=== PATIENT | female | born 1930 | race Caucasian/White ===

== ENCOUNTER 2016-08-04 20:32 | Observation (INO) | payer OTHER, BC ==
--- NOTE | 2016-08-04 20:37 | PDOC ---
History of Present Illness - General History Source: Patient Exam Limitations: No Limitations - History of Present Illness Initial Comments: 08/04/16 21:08 The patient is a 86 year old female, with a significant past medical history of hypertension, hyperlipidemia, and hypothyroidism, who presents to the emergency department complaining of abdominal pain since earlier today. The patient reports her discomfort is localized epigastrically and is nonradiating. She reports associated nausea and diaphoresis. Patient reports taking Mylanta with minimal relief. She reports episodes of diarrhea yesterday. The patient reports she recently had a runny nose, fever, cough, and chills, during which she saw her PCP Dr. Polanco, who prescribed a Z-pack. Patient reports some SOB, but denies any chest pain, diaphoresis, or palpitations. The patient denies any dysuria, hematuria, frequency, or urgency. She denies any recent travel or sick contacts. PAST MEDICAL HISTORY: Hypertension, hyperlipidemia, and hypothyroidism PAST SURGICAL HISTORY: Appendectomy FAMILY HISTORY: Heart disease: father SOCIAL HISTORY: Pt lives with . Former smoker. Social ETOH use. No recreational drug use. MEDICATIONS: reviewed ALLERGIES: As per nursing notes PCP: Dr. Polanco General: Yes: +fever, +chills. No weakness, no weight loss HEENT: Yes: +runny nose. No change in vision. No sore throat. No ear pain CardioVascular: Yes: +shortness of breath.No chest pain. Respiratory: Yes: +cough. No wheezing. Gastrointestinal: Yes:+ abdominal pain, +nausea, +diarrhea. no vomiting or constipation. No rectal bleeding Genitourinary: No dysuria, hematuria, or frequency Musculoskeletal: No joint or muscle pain or swelling Neurologic: No headache, vertigo, dizziness or loss of consciousness Psychiatric: No depression Skin: No rashes or easy bruising Endocrine: no increased thirst or abnormal weight change Allergic: no skin or latex allergy All other systems reviewed and normal General: Well-nourished well-developed individual, no acute distress HEENT: Throat: Normal, tonsils normal, no erythema or exudate Neck: Supple, no meningeal signs, no lymphadenopathy Eyes::Pupils equal reactive and round, extraocular motion intact Chest: Nontender to palpation Cardiac: S1-S2 normal, regular rate and rhythm, no murmurs rubs or gallops Respiratory: Lungs clear to auscultation bilateral Abdomen: Mild tenderness epigastrically, but no guarding or rebound.. Soft, nondistended, normal bowel sounds Extremities: Warm, dry, no cyanosis, clubbing, or edema Skin: No rashes Neuro: Alert and oriented x3, nonfocal exam, grossly intact, normal gait Psych: Normal mood and affect <George Diggs - Last Filed: 08/04/16 21:28> - General History Source: Patient Exam Limitations: No Limitations - History of Present Illness Initial Comments: 08/04/16 22:11 A portion of this note was documented by scribe services under my direction. I have reviewed the details of the note, within reason, and agree with the documentation. The case summary and management plan written by me. 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 Otherwise no acute ST-T wave changes Chest x-ray reviewed by me no acute pathology Assessment and plan: This is an 86-year-old female who comes in complaining of epigastric pain times this afternoon. Patient said pain was associated with some nausea and diaphoresis and some mild shortness of breath. Patient has history of hypertension high cholesterol and hypothyroid. Patient's heart score is 5. Her initial troponin was negative. Patient will be placed in observation to a telemetry bed for rule out acute coronary syndrome. Patient will be a admitted under the hospitalist service <Sterling Dhaliwal I - Last Filed: 08/04/16 22:15> - General Chief Complaint: Pain, Acute Stated Complaint: EPIGASTRIC PAIN/HTN Time Seen by Provider: 08/04/16 20:37 Past History <George Diggs - Last Filed: 08/04/16 21:28> - Past Medical History HTN: Yes Hypercholesterolemia: Yes Thyroid Disease: Yes (HYPOTHYROID) - Surgical History Appendectomy: Yes - Family Disease History Family Disease History: Heart Disease: Father - Psycho/Social/Smoking Cessation Hx Anxiety: No Suicidal Ideation: No Smoking Status: No Smoking History: Former smoker Have you smoked in the past 12 months: No Number of Cigarettes Smoked Daily: 20 If you are a former smoker, when did you quit?: 25 Hx Alcohol Use: Yes Drug/Substance Use Hx: No Substance Use Type: None Hx Substance Use Treatment: No <Sterling Dhaliwal I - Last Filed: 08/04/16 22:15> - Past Medical History Allergies/Adverse Reactions: Allergies Allergy/AdvReac Type Severity Reaction Status Date / Time No Known Allergies Allergy Verified 08/03/15 17:35 Home Medications: Ambulatory Orders Aspirin [Aspir 81] 81 mg PO AM 05/31/12 Acetaminophen [Tylenol] 650 mg PO PRN PRN 08/04/16 Diazepam [Valium] 5 mg PO PRN PRN 08/04/16 Olmesartan Medoxomil [Benicar (Nf)] 40 mg PO DAILY 08/04/16 *Physical Exam - Vital Signs Last Vital Signs Temp Pulse Resp BP Pulse Ox 98.8 F 90 18 126/88 93 L 08/04/16 20:39 08/04/16 20:39 08/04/16 20:39 08/04/16 20:39 08/04/16 20:39 <George Diggs - Last Filed: 08/04/16 21:28> Heart Score/ECG Review - History History: Moderately suspicious - Electrocardiogram EKG: Non specific repolarization disturbance - Age Age: >/= 65 - Risk Factors Risk Factors Heart Score: Yes Hx Hypercholesterolemia, Yes Hx Hypertension Based on the list above the patient has:: 1-2 risk factors - Troponin Troponin: </= normal limit - Score Heart Score - Total: 5 <Sterling Dhaliwal I - Last Filed: 08/04/16 22:15> ED Treatment Course - LABORATORY CBC & Chemistry Diagram: 08/04/16 21:04 08/04/16 21:04 <George Diggs - Last Filed: 08/04/16 21:28> - LABORATORY CBC & Chemistry Diagram: 08/04/16 21:04 08/04/16 21:04 <Sterling Dhaliwal I - Last Filed: 08/04/16 22:15> *DC/Admit/Observation/Transfer - Attestations Scribe Attestion: 08/04/16 21:09 Documentation prepared by George Diggs, acting as medical screener for Sterling Dhaliwal MD. <George Diggs - Last Filed: 08/04/16 21:28> - Discharge Dispostion Admit: Yes <Sterling Dhaliwal I - Last Filed: 08/04/16 22:15> Diagnosis at time of Disposition: Epigastric pain - Discharge Dispostion Disposition: HOME Condition at time of disposition: Stable - Referrals Referrals: Robin Polanco MD [Primary Care Provider] -
[2016-08-04 21:13] LABS: MCH 34.4 pg (25.7-33.7); MCHC 34.7 g/dl (32.0-36.0); MEAN CELL VOLUME 99.4 fl (80-96); MEAN PLT VOLUME 6.6 fl (7.5-11.1); PLATELET COUNT 304 K/MM3 (134-434); RDW 12.1 % (11.6-15.6)
[2016-08-04] MEDS ORDERED: FAMOTIDINE 20 MG/50 ML IVPB 50 ML IVPB ONE ×2 (21:16→21:34)
[2016-08-04 21:27] LABS: CPK(DFH) 48 IU/L (26-140)
[2016-08-04 21:31] LABS: ALBUMIN 4.3 g/dl (3.5-5.0); ALK PHOS 51 U/L (32-92); ANION GAP 6 (8-16); BILIRUBIN,TOTAL 0.3 mg/dl (0.2-1.0); CALCIUM 9.1 mg/dl (8.4-10.2); CO2 27 mmol/L (22-28); CREATININE 0.7 mg/dl (0.6-1.3); GLUCOSE,RANDOM 102 mg/dl (74-106); SGOT/AST 22 U/L (10-42); SGPT/ALT 19 U/L (10-40); TOT PROT 7.1 g/dl (6.4-8.3)
[2016-08-04 21:57] LABS: TROPONIN I (DFP) < 0.03 ng/ml (0.03-0.50)
--- NOTE | 2016-08-04 22:42 | HP ---
CHIEF COMPLAINT: Epigastric Pain, SOB PCP: Dr Polanco HISTORY OF PRESENT ILLNESS: This is a 86 y/o female with a past medical history of Hypertension, Hyperlipidemia, Hypothyroidism. Who presents to the emergency department with epigastric pain, SOB x today. Patient reports having diarrhea x 1 day, now having loose BMs. Patient reports having low grade fever 99.0, dry-productive cough clear, rhinorrhea started Z-marbella by PMD. Patient denies chills, dizziness, CP, AP, N/V, constipation, dysuria. Patient denies exposure to sick contacts. ER course was notable for: (1) Cardiac Enzymes neg x1 (2) EKG NSR with LAD, old anterior infarct (3) Chest Xray- no acute pathology Recent Travel: None PAST MEDICAL HISTORY: See HPI PAST SURGICAL HISTORY: Appendectomy Social History: Smoking: Former Alcohol: Occasional Drugs: None Lives with spouse, independent Family History: Father- Heart Disease Allergies No Known Allergies Allergy (Verified 08/03/15 17:35) HOME MEDICATIONS: Home Medications Medication Instructions Recorded Aspirin [Aspir 81] 81 mg PO AM 05/31/12 Acetaminophen [Tylenol] 650 mg PO PRN PRN 08/04/16 Diazepam [Valium] 5 mg PO PRN PRN 08/04/16 Olmesartan Medoxomil [Benicar (Nf)] 40 mg PO DAILY 08/04/16 REVIEW OF SYSTEMS CONSTITUTIONAL: fever, loss of appetite Absent: chills, diaphoresis, generalized weakness, malaise, weight change HEENT: rhinorrhea Absent: nasal congestion, throat pain, throat swelling, difficulty swallowing, mouth swelling, ear pain, eye pain, visual changes CARDIOVASCULAR: Absent: chest pain, syncope, palpitations, irregular heart rate, lightheadedness , peripheral edema RESPIRATORY: cough Absent: shortness of breath, dyspnea with exertion, orthopnea, wheezing, stridor, hemoptysis GASTROINTESTINAL: diarrhea Absent: abdominal pain, abdominal distension, nausea, vomiting, constipation, melena, hematochezia GENITOURINARY: Absent: dysuria, frequency, urgency, hesitancy, hematuria, flank pain, genital pain MUSCULOSKELETAL: Absent: myalgia, arthralgia, joint swelling, back pain, neck pain SKIN: Absent: rash, itching, pallor HEMATOLOGIC/IMMUNOLOGIC: Absent: easy bleeding, easy bruising, lymphadenopathy, frequent infections ENDOCRINE: Absent: unexplained weight gain, unexplained weight loss, heat intolerance, cold intolerance NEUROLOGIC: Absent: headache, focal weakness or paresthesias, dizziness, unsteady gait, seizure, mental status changes, bladder or bowel incontinence PSYCHIATRIC: Absent: anxiety, depression, suicidal or homicidal ideation, hallucinations. PHYSICAL EXAMINATION Vital Signs - 24 hr 08/04/16 20:39 Temperature 98.8 F Pulse Rate 90 Respiratory 18 Rate Blood Pressure 126/88 O2 Sat by Pulse 93 L Oximetry (%) GENERAL: Awake, alert, and fully oriented, in no acute distress. HEAD: Normal with no signs of trauma. EYES: Pupils equal, round and reactive to light, extraocular movements intact, sclera anicteric, conjunctiva clear. No lid lag. EARS, NOSE, THROAT: Ears normal, nares patent, oropharynx clear without exudates. Dry mucous membranes. NECK: Normal range of motion, supple without lymphadenopathy, JVD, or masses. LUNGS: Air movement noted, diminished to Left base. No wheezes, and no crackles. No accessory muscle use. HEART: Regular rate and rhythm, normal S1 and S2 without murmur, rub or gallop. ABDOMEN: Obese,tender to epigastrium, soft, not distended, normoactive bowel sounds, no guarding, no rebound, no masses. No hepatomegaly or splenomegaly. MUSCULOSKELETAL: Normal range of motion at all joints. No bony deformities or tenderness. No CVA tenderness. UPPER EXTREMITIES: 2+ pulses, warm, well-perfused. No cyanosis. No clubbing. No peripheral edema. LOWER EXTREMITIES: 2+ pulses, warm, well-perfused. No calf tenderness. No peripheral edema. NEUROLOGICAL: Cranial nerves II-XII intact. Normal speech. Gait not observed. PSYCHIATRIC: Cooperative. Good eye contact. Appropriate mood and affect. SKIN: Warm, dry, normal turgor, no rashes or lesions noted, normal capillary refill. Laboratory Results - last 24 hr 08/04/16 08/04/16 08/04/16 21:04 21:04 21:04 WBC 3.0 L D RBC 3.74 Hgb 12.9 Hct 37.2 MCV 99.4 H MCHC 34.7 RDW 12.1 Plt Count 304 MPV 6.6 L Neutrophils % Y Lymphocytes % Y Sodium 132 L Potassium 4.3 Chloride 99 Carbon Dioxide 27 Anion Gap 6 L BUN 10 D Creatinine 0.7 Creat Clearance w eGFR > 60 Random Glucose 102 Calcium 9.1 Total Bilirubin 0.3 AST 22 D ALT 19 Alkaline Phosphatase 51 Creatine Kinase 48 Troponin I < 0.03 L Total Protein 7.1 Albumin 4.3 Lipase 27 ASSESSMENT/PLAN: This is a 86 y/o female with a PMHx of: HTN, HLD, Hypothyroidism. Placed in Telemetry Observation Epigastric Pain r/o ACS for further evaluation of their emergent condition. Plan: 1. Epigastric Pain - r/o ACS vs Gastritis vs GERD, vs Pancreatitis - HEART Score 5 - EKG- reviewed - Appreciate Cardiology Consult - Serial Enzymes neg x1 - Will trend CE x2 - Echo in am - Blood Cultures-pending - Famotidine given in ED with some relief - Continue Famotidine IV - Gentle IVF - Clear Liquids ad amrit - Repeat CBC, BMP in am - Stool Culture 2. Hypertension - Controlled - Monitor BP - Continue Zetia, Benicar - Monitor renal function 3. Hypothroidism - Continue Levothyroxine - TSH 4. Hyperlipidemia - Lipid panel in am - Continue Lipitor 5. FEN - D51/2 NS@42cc/hr - Replete lytes prn - Clear Na Liquid Diet 6. DVT Prophylaxis - OOB - SCDs - Consider ACs if LOS > 48 hrs Code Status: Full Code Problem List - Problem (1) Epigastric pain Code(s): R10.13 - EPIGASTRIC PAIN (2) Gastroenteritis Code(s): K52.9 - NONINFECTIVE GASTROENTERITIS AND COLITIS, UNSPECIFIED (3) HTN (hypertension) Code(s): I10 - ESSENTIAL (PRIMARY) HYPERTENSION (4) HLD (hyperlipidemia) Code(s): E78.5 - HYPERLIPIDEMIA, UNSPECIFIED (5) Hypothyroidism Code(s): E03.9 - HYPOTHYROIDISM, UNSPECIFIED (6) DVT prophylaxis Code(s): DLM4755 - Visit type - Emergency Visit Emergency Visit: Yes ED Registration Date: 08/04/16 Care time: The patient presented to the Emergency Department on the above date and was hospitalized for further evaluation of their emergent condition. - New Patient This patient is new to me today: Yes Date on this admission: 08/04/16 - Critical Care Critical Care patient: No
[2016-08-04 22:47] LABS: PLATELET ESTIMATE ADEQUATE (NORMAL)
[2016-08-04] MEDS ORDERED: ASPIRIN 81 MG CHEWABLE TABLETS PO ONE (22:51)
[2016-08-04] MEDS ORDERED: DEXTROSE 5%-0.45% SALINE 1,000 ML IV SCH (23:00)
[2016-08-04] MEDS ORDERED: ASPIRIN 81 MG CHEWABLE TABLETS ONE (23:06)
[2016-08-05 00:26] LABS: URINE APPEARANCE CLEAR; URINE BILIRUBIN NEGATIVE (NEGATIVE); URINE BLOOD NEGATIVE (NEGATIVE); URINE COLOR LTYELLOW; URINE GLUCOSE (UA) NEGATIVE (NEGATIVE); URINE KETONE NEGATIVE (NEGATIVE); URINE LEUK ESTERASE NEGATIVE (NEGATIVE); URINE NITRITE NEGATIVE (NEGATIVE); URINE PROTEIN NEGATIVE (NEGATIVE); URINE UROBILINOGEN NEGATIVE E.U./dl (0.2-1.0)
[2016-08-05 00:48] VITALS: BMI 30.6
[2016-08-05 02:33] LABS: TROPONIN I < 0.02 ng/ml (0.00-0.05)
[2016-08-05] MEDS: guaiFENesin 200 MG/10 ML 10 ML UNIT-DOSE CUPS PO PRN ×2 (04:36→23:20)
[2016-08-05] MEDS: ACETAMINOPHEN 325 MG TABLET (FP) PO PRN (06:02)
[2016-08-05] MEDS: LEVOTHYROXINE NA 25 MCG TABLET (FP) PO SCH (06:35)
[2016-08-05 07:32] LABS: BASOPHIL 0.4 % (0-2.0); EOSINOPHIL 4.4 % (0-4.5); MCH 34.6 pg (25.7-33.7); MCHC 34.5 g/dl (32.0-36.0); MEAN CELL VOLUME 100.1 fl (80-96); NEUTROPHILS 56.4 % (42.8-82.8); PLATELET COUNT 264 K/MM3 (134-434); RDW 11.9 % (11.6-15.6); WHITE BLOOD COUNT 3.6 K/mm3 (4.0-10.8)
[2016-08-05 07:41] LABS: ANION GAP 9 (8-16); CO2 26 mmol/L (22-28); CREATININE 0.7 mg/dl (0.6-1.3); GLUCOSE,RANDOM 96 mg/dl (74-106); MAGNESIUM 1.9 mg/dL (1.8-2.4); PHOSPHOROUS 3.2 mg/dl (2.5-4.6)
[2016-08-05 08:35] LABS: CPK(DFH) 56 IU/L (26-140)
[2016-08-05] MEDS ORDERED: PT OWN MED DRAWER 7, Y5N ONE (09:24)
[2016-08-05] MEDS: FOLIC ACID 1 MG TABLET (FP) PO SCH (09:26)
[2016-08-05] MEDS: EZETIMIBE 10 MG TABLET (FP) PO SCH (09:26)
[2016-08-05] MEDS: MULTIVITAMINS (DAILY MVI) TABLET (FP) PO SCH (09:26)
[2016-08-05] MEDS: VALSARTAN 160 MG TABLET (UD) PO SCH (09:26)
[2016-08-05] MEDS: ASPIRIN 81 MG CHEWABLE TABLETS PO SCH (09:26)
[2016-08-05 09:27] LABS: TROPONIN I (DFP) < 0.03 ng/ml (0.03-0.50)
--- NOTE | 2016-08-05 09:52 | PN ---
Progress Note (short form) - Note Progress Note: Subjective: The patient was seen and examined at the bedside. She reports having diarrhea x1 day on Sunday and then it quickly resolved. She has not had any diarrhea since Sunday. Will discontinued stool culture. The patient also reports a cough started about 10 days ago. She started a z-marbella on without relief of symptoms. She denies any fever or chills. Chest x- ray negative for acute process. She also reports epigastric pain that has now resolved. She reports relief while taking Mylanta. Current Medications Generic Name Dose Route Start Last Admin Trade Name Freq PRN Reason Stop Dose Admin Acetaminophen 650 mg 08/05/16 02:16 08/05/16 06:02 Tylenol - PO 650 mg Q6H PRN Administration FEVER OR PAIN Al Hydroxide/Mg Hydroxide 30 ml 08/05/16 09:53 Mylanta Oral Suspension - PO Q6H PRN DYSPEPSIA Aspirin 81 mg 08/05/16 10:00 08/05/16 09:26 Asa - PO 81 mg DAILY RAMYA Administration Atorvastatin Calcium 10 mg 08/07/16 22:00 Lipitor - PO MoFr@2200 RAMYA Ezetimibe 10 mg 08/05/16 10:00 08/05/16 09:26 Zetia - PO 10 mg DAILY RAMYA Administration Famotidine 20 mg 08/05/16 10:00 Pepcid - PO BID RAMYA Folic Acid 1 mg 08/05/16 10:00 08/05/16 09:26 Folic Acid - PO 1 mg DAILY RAMYA Administration Guaifenesin 10 ml 08/05/16 01:48 08/05/16 04:36 Robitussin - PO 10 ml Q6H PRN Administration COUGH Guaifenesin/Codeine Phosphate 5 ml 08/05/16 09:48 Robitussin Ac - PO 08/05/16 09:49 ONCE ONE Dextrose/Sodium Chloride 1,000 mls @ 42 mls/hr 08/04/16 23:00 08/05/16 00:25 D5-1/2ns - IV 42 mls/hr ASDIR RAMYA Administration Levothyroxine Sodium 25 mcg 08/05/16 07:00 08/05/16 06:35 Synthroid - PO 25 mcg DAILY@0700 RAMYA Administration Multivitamins/Minerals/Vitamin C 1 tab 08/05/16 10:00 08/05/16 09:26 Tab-A-Vit - PO 1 tab DAILY RAMYA Administration Valsartan 320 mg 08/05/16 10:00 08/05/16 09:26 Diovan - PO 320 mg DAILY RAMYA Administration Objective: Vital Signs Period Temp Pulse Resp BP Sys/Haley Pulse Ox Last 24 Hr 98.6 F-99 F 62-90 18-19 112-141/64-94 93-100 Physical Exam: General: NAD, A&Ox3 Lungs: CTA bilaterally, dry cough Heart: RRR, S1S2 Abd: Soft, non-tender, non-distended. Normoactive bowel sounds Ext: Warm, well-perfused. 2+ DP/PT bilaterally Neuro: CN 2-12 intact CBCD WBC 3.6 K/mm3 (4.0-10.8) L 08/05/16 06:00 RBC 3.46 M/mm3 (3.60-5.2) L 08/05/16 06:00 Hgb 12.0 GM/dl (10.7-15.3) 08/05/16 06:00 Hct 34.6 % (32.4-45.2) 08/05/16 06:00 MCV 100.1 fl (80-96) H 08/05/16 06:00 MCHC 34.5 g/dl (32.0-36.0) 08/05/16 06:00 RDW 11.9 % (11.6-15.6) 08/05/16 06:00 Plt Count 264 K/MM3 (134-434) 08/05/16 06:00 MPV 7.0 fl (7.5-11.1) L 08/05/16 06:00 CMP Sodium 134 mmol/L (136-145) L 08/05/16 06:00 Potassium 4.4 mmol/L (3.5-5.1) 08/05/16 06:00 Chloride 99 mmol/L (98-107) 08/05/16 06:00 Carbon Dioxide 26 mmol/L (22-28) 08/05/16 06:00 Anion Gap 9 (8-16) 08/05/16 06:00 BUN 10 mg/dl (7-18) 08/05/16 06:00 Creatinine 0.7 mg/dl (0.6-1.3) 08/05/16 06:00 Creat Clearance w eGFR > 60 (>60) 08/04/16 21:04 Random Glucose 96 mg/dl (74-106) 08/05/16 06:00 Calcium 9.0 mg/dl (8.4-10.2) 08/05/16 06:00 Total Bilirubin 0.3 mg/dl (0.2-1.0) 08/04/16 21:04 AST 22 U/L (10-42) D 08/04/16 21:04 ALT 19 U/L (10-40) 08/04/16 21:04 Alkaline Phosphatase 51 U/L (32-92) 08/04/16 21:04 Total Protein 7.1 g/dl (6.4-8.3) 08/04/16 21:04 Albumin 4.3 g/dl (3.5-5.0) 08/04/16 21:04 CARDIAC ENZYMES Creatine Kinase 56 IU/L (26-140) 08/05/16 07:57 Troponin I < 0.03 ng/ml (0.03-0.50) L 08/05/16 07:57 Assessment: This is an 86 year old female with PMHx of hypertension, hyperlipidemia, and hypothyroidism who presented to the ED with epigastric pain and cough. Plan: 1) Non-productive cough - Viral vs. bacterial - Afebrile, no leukocytosis noted - Chest x-ray without any acute process - Will hold off on starting antibiotics at this time - Robitussin with codeine x1 and assess for relief of symptoms 2) Epigastric pain - GI vs. cardiac - Trop x2 negative, f/u 3rd trop. ECHO ordered. F/u cardiology consult - Pain has since resolved - Patient reports relief with Mylanta - Continue Mylanta - Continue Famotidine - Sodium controlled diet 3) HTN - Continue Diovan 4) Hyperlipidemia - Continue Zetia - Continue Lipitor 5) Hypothyroidism - Continue Synthroid - F/u TSH 6) F/E/N: - Sodium controlled diet - D/c IV fluids, patient tolerating po fluids 7) Prophylaxis: - SCDs bilaterally - Heparin 5,000u sq bid 8) Dispo: - Once condition improves and awaiting ECHO CODE STATUS: FULL CODE Visit type - Emergency Visit Emergency Visit: Yes ED Registration Date: 08/04/16 Care time: The patient presented to the Emergency Department on the above date and was hospitalized for further evaluation of their emergent condition. - New Patient This patient is new to me today: Yes Date on this admission: 08/05/16 - Critical Care Critical Care patient: No
[2016-08-05] MEDS ORDERED: MAG HYDROX/AL HYDROX/SIMETH 30 ML UNIT-DOSE CUP PO PRN (09:53)
[2016-08-05] MEDS: FAMOTIDINE 20 MG TABLET PO SCH ×2 (09:59→22:10)
[2016-08-05] MEDS ORDERED: guaiFENesin/CODEINE 10 ML UNIT-DOSE CUPS PO ONE (10:15)
[2016-08-05] MEDS: HEPARIN NA (PORCINE) 5,000 UNITS/ML 1ML VIAL SQ SCH ×2 (10:28→22:10)
--- NOTE | 2016-08-05 10:47 | EKG ---
Test Reason : Blood Pressure : / mmHG Vent. Rate : 098 BPM Atrial Rate : 098 BPM P-R Int : 184 ms QRS Dur : 072 ms QT Int : 360 ms P-R-T Axes : 072 -66 061 degrees QTc Int : 459 ms NORMAL SINUS RHYTHM LEFT AXIS DEVIATION ANTERIOR INFARCT , AGE UNDETERMINED NO PREVIOUS ECGS AVAILABLE Confirmed by MD BARBOZA MARJORY ([id number]) on 08/05/2016 10:46:58 AM Referred By: MD LAW Confirmed By:ROMMEL BARBOZA MD
[2016-08-05 11:49] LABS: THYROID STIMULATING HORMONE 3.85 uIU/ml (0.358-3.74)
--- NOTE | 2016-08-05 14:10 | CONSULT ---
Consult Consult Specialty:: Cardiology Referred by:: Cheryle Hauser Reason for Consultation:: Epigastric pain, SOB - History of Present Illness Chief Complaint: As above History of Present Illness: 86 y/o female with past tobacco, hx of Hypertension, Hyperlipidemia, Hypothyroidism, who has been coughing (dry) on and off for 2 weeks, along with itchy eyes/runny nose and presents with epigastric pain. She was sitting, started coughing and developed the pain. Denies CP, but has had SOB at times. Denies ELGIN, PND or orthopnea. She was given a Z pack by Dr Polanco w/o help - History Source History Provided By: Patient - Past Medical History Cardio/Vascular: Yes: HTN, Hyperlipdemia ...: No Musculoskeletal: Yes: Osteoarthritis Endocrine: Yes: Hypothyroidism - Past Surgical History Past Surgical History: Yes: Appendectomy, Hysterectomy - Alcohol/Substance Use Hx Alcohol Use: Yes - Smoking History Smoking history: Former smoker Have you smoked in the past 12 months: No Aproximately how many cigarettes per day: 30 If you are a former smoker, when did you quit?: 25 Home Medications - Allergies Allergies/Adverse Reactions: Allergies Allergy/AdvReac Type Severity Reaction Status Date / Time No Known Allergies Allergy Verified 08/03/15 17:35 - Home Medications Home Medications: Ambulatory Orders Aspirin [Aspir 81] 81 mg PO AM 05/31/12 Acetaminophen [Tylenol] 650 mg PO PRN PRN 08/04/16 Diazepam [Valium] 5 mg PO PRN PRN 08/04/16 Olmesartan Medoxomil [Benicar (Nf)] 40 mg PO DAILY 08/04/16 Family Disease History - Family Disease History Family History: Denies (premature CAD) Other Family History: 2 children -. of CF Review of Systems - Review of Systems Constitutional: reports: Fever (low grade) Eyes: reports: Other (itchy eyes) HENT: reports: Other (runny nose) Cardiovascular: reports: Shortness of Breath (at times) Respiratory: reports: Cough, SOB Gastrointestinal: reports: Abdominal Pain (epigastric) Genitourinary: reports: No Symptoms Musculoskeletal: reports: Joint Pain Neurological: reports: No Symptoms Psychiatric: reports: No Symptoms Physical Exam Vital Signs: Vital Signs Temperature 98.6 F 08/05/16 04:00 Pulse Rate 72 08/05/16 06:00 Respiratory Rate 18 08/05/16 08:09 Blood Pressure 130/83 08/05/16 06:00 O2 Sat by Pulse Oximetry (%) 94 L 08/05/16 08:09 Constitutional: Yes: No Distress Eyes: Yes: Conjunctiva Clear HENT: Yes: Atraumatic Neck: Yes: Supple Cardiovascular: Yes: Regular Rate and Rhythm. No: Murmur Respiratory: Yes: CTA Bilaterally Gastrointestinal: Yes: Normal Bowel Sounds, Soft. No: Tenderness Edema: No Peripheral Pulses WNL: Yes Neurological: Yes: Alert, Oriented Psychiatric: Yes: Alert, Oriented Labs: CBC, BMP 08/05/16 06:00 08/05/16 06:00 Imaging - Results Chest X-ray: Report Reviewed, Image Reviewed EKG: Report Reviewed, Image Reviewed Assessment/Plan 86 yo female with the above history, here with epigastric pain on a background of coughing for 2 weeks and other symptoms suggestive of possible allergies. ? URI -. didn't respond to Z pack She denies CP and there is no evidence of ACS No CHF either BP was high when EMS got there , but ok now Lipids are ok Rec: Continue current meds May be d/dung from cardiac standpoint Given risk factors, pt should get outpt cardiac evaluation -. thinking of Dr Harper as her is due to see her (I also gave her my card as she is undecided) Thanks! We'll see prn! D/w pt and
[2016-08-05] MEDS ORDERED: ATORVASTATIN CA 10 MG TABLET (FP) PO SCH (22:00)
[2016-08-06] MEDS: LEVOTHYROXINE NA 25 MCG TABLET (FP) PO SCH (06:23)
--- NOTE | 2016-08-06 07:23 | PN ---
Physical Exam: SUBJECTIVE: Patient seen and examined at bedside pt c/o being cold from A/c, afebrile OBJECTIVE: Vital Signs Period Temp Pulse Resp BP Sys/Haley Pulse Ox Last 24 Hr 98.2 F-98.6 F 70-102 18-20 105-140/54-74 90-95 GENERAL: The patient is awake, alert, and fully oriented, in no acute distress. HEAD: Normal with no signs of trauma. EYES: PERRL, extraocular movements intact, sclera anicteric, conjunctiva clear. No ptosis. ENT: Ears normal, nares patent, oropharynx clear without exudates, moist mucous membranes. NECK: Trachea midline, full range of motion, supple. LUNGS: Breath sounds equal, clear to auscultation bilaterally, no wheezes, no crackles, no accessory muscle use. HEART: Regular rate and rhythm, S1, S2 without murmur, rub or gallop. ABDOMEN: Soft, nontender, nondistended, normoactive bowel sounds, no guarding, no rebound, no hepatosplenomegaly, no masses. EXTREMITIES: 2+ pulses, warm, well-perfused, no edema. NEUROLOGICAL: Cranial nerves II through XII grossly intact. Normal speech, gait not observed. PSYCH: Normal mood, normal affect. SKIN: Warm, dry, normal turgor, no rashes or lesions noted Laboratory Results - last 24 hr 08/04/16 08/05/16 08/05/16 23:45 06:00 06:00 WBC 3.6 L RBC 3.46 L Hgb 12.0 Hct 34.6 MCV 100.1 H MCHC 34.5 RDW 11.9 Plt Count 264 MPV 7.0 L Neutrophils % 56.4 Lymphocytes % 27.6 Monocytes % 11.2 H D Eosinophils % 4.4 Basophils % 0.4 Sodium 134 L Potassium 4.4 Chloride 99 Carbon Dioxide 26 Anion Gap 9 BUN 10 Creatinine 0.7 Random Glucose 96 Hemoglobin A1c % Calcium 9.0 Phosphorus 3.2 Magnesium 1.9 Creatine Kinase Troponin I Triglycerides Cholesterol Total LDL Cholesterol HDL Cholesterol TSH Urine Color Ltyellow Urine Appearance Clear Urine pH 5.0 D Ur Specific [place] 1.015 Urine Protein Negative Urine Glucose (UA) Negative Urine Ketones Negative Urine Blood Negative Urine Nitrite Negative Urine Bilirubin Negative Urine Urobilinogen Negative Ur Leukocyte Esterase Negative 08/05/16 08/05/1617 06:00 06:00 07:57 WBC RBC Hgb Hct MCV MCHC RDW Plt Count MPV Neutrophils % Lymphocytes % Monocytes % Eosinophils % Basophils % Sodium Potassium Chloride Carbon Dioxide Anion Gap BUN Creatinine Random Glucose Hemoglobin A1c % 5.6 D Calcium Phosphorus Magnesium Creatine Kinase 56 Troponin I < 0.03 L Triglycerides 117 D Cholesterol 153 Total LDL Cholesterol 73 HDL Cholesterol 57 D TSH 3.85 H D Urine Color Urine Appearance Urine pH Ur Specific [place] Urine Protein Urine Glucose (UA) Urine Ketones Urine Blood Urine Nitrite Urine Bilirubin Urine Urobilinogen Ur Leukocyte Esterase Active Medications Generic Name Dose Route Start Last Admin Trade Name Freq PRN Reason Stop Dose Admin Acetaminophen 650 mg 08/05/16 02:16 08/05/16 06:02 Tylenol - PO 650 mg Q6H PRN Administration FEVER OR PAIN Al Hydroxide/Mg Hydroxide 30 ml 08/05/16 09:53 Mylanta Oral Suspension - PO Q6H PRN DYSPEPSIA Aspirin 81 mg 08/05/16 10:00 08/05/16 09:26 Asa - PO 81 mg DAILY [facility] Administration Atorvastatin Calcium 10 mg 08/07/16 22:00 Lipitor - PO MoFr@2200 [facility] Ezetimibe 10 mg 08/05/16 10:00 08/05/16 09:26 Zetia - PO 10 mg DAILY [facility] Administration Famotidine 20 mg 08/05/16 10:00 08/05/16 22:10 Pepcid - PO 20 mg BID RAMYA Administration Folic Acid 1 mg 08/05/16 10:00 08/05/16 09:26 Folic Acid - PO 1 mg DAILY [facility]YA Administration Guaifenesin 10 ml 08/05/16 01:48 08/05/16 23:20 Robitussin - PO 10 ml Q6H PRN Administration COUGH Heparin Sodium (Porcine) 5,000 unit 08/05/16 10:00 08/05/16 22:10 Heparin - SQ 5,000 unit BID [facility] Administration Levothyroxine Sodium 25 mcg 08/05/16 07:00 08/06/16 06:23 Synthroid - PO 25 mcg DAILY@0700 [facility] Administration Multivitamins/Minerals/Vitamin C 1 tab 08/05/16 10:00 08/05/16 09:26 Tab-A-Vit - PO 1 tab DAILY [facility] Administration Valsartan 320 mg 08/05/16 10:00 08/05/16 09:26 Diovan - PO 320 mg DAILY [facility] Administration ASSESSMENT/PLAN: Assessment: This is an 86 year old female with PMHx of hypertension, hyperlipidemia, and hypothyroidism who presented to the ED with epigastric pain and cough. Plan: 1) Non-productive cough - Viral vs. bacterial - Afebrile, no leukocytosis noted - Chest x-ray without any acute process - Will hold off on starting antibiotics at this time - Robitussin with codeine x1 and assess for relief of symptoms 2) Epigastric pain - GI vs. cardiac - Trop x3 neg. ECHO ordered and pending - Pain has since resolved - Patient reports relief with Mylanta - Continue Mylanta - Continue Famotidine - Sodium controlled diet 3) HTN - Continue Diovan 4) Hyperlipidemia - Continue Zetia - Continue Lipitor 5) Hypothyroidism - Continue Synthroid - F/u TSH 6) F/E/N: - Sodium controlled diet - D/c IV fluids, patient tolerating po fluids 7) Prophylaxis: - SCDs bilaterally - Heparin 5,000u sq bid 8) Dispo: - Once condition improves and awaiting ECHO CODE STATUS: FULL CODE Problem List - Problems (1) DVT prophylaxis Code(s): KSU8068 - (2) HLD (hyperlipidemia) Code(s): E78.5 - HYPERLIPIDEMIA, UNSPECIFIED (3) HTN (hypertension) Code(s): I10 - ESSENTIAL (PRIMARY) HYPERTENSION (4) Chest pain in adult Code(s): R07.9 - CHEST PAIN, UNSPECIFIED Visit type - Emergency Visit Emergency Visit: No - New Patient This patient is new to me today: Yes Date on this admission: 08/06/16 - Critical Care Critical Care patient: No - Discharge Referral Referred to [facility] Med P.C.: No
[2016-08-06] MEDS: MULTIVITAMINS (DAILY MVI) TABLET (FP) PO SCH (10:00)
[2016-08-06] MEDS: ASPIRIN 81 MG CHEWABLE TABLETS PO SCH (10:04)
[2016-08-06] MEDS: VALSARTAN 160 MG TABLET (UD) PO SCH (10:08)
[2016-08-06] MEDS: FAMOTIDINE 20 MG TABLET PO SCH ×2 (10:09→21:23)
[2016-08-06] MEDS: FOLIC ACID 1 MG TABLET (FP) PO SCH (10:09)
[2016-08-06] MEDS: HEPARIN NA (PORCINE) 5,000 UNITS/ML 1ML VIAL SQ SCH ×2 (10:10→21:24)
[2016-08-06] MEDS: EZETIMIBE 10 MG TABLET (FP) PO SCH (10:10)
[2016-08-06] MEDS: ACETAMINOPHEN 325 MG TABLET (FP) PO PRN ×2 (11:29→21:23)
[2016-08-06] MEDS: guaiFENesin 200 MG/10 ML 10 ML UNIT-DOSE CUPS PO PRN (21:23)
[2016-08-07] MEDS ORDERED: guaiFENesin/D-METHORPHAN HB 10 ML UNIT-DOSE CUPS PO PRN (00:16)
[2016-08-07] MEDS: LEVOTHYROXINE NA 25 MCG TABLET (FP) PO SCH (06:04)
[2016-08-07 09:09] LABS: ALBUMIN 4.1 g/dl (3.5-5.0); ALK PHOS 51 U/L (32-92); ANION GAP 11 (8-16); BILIRUBIN,TOTAL 0.5 mg/dl (0.2-1.0); CALCIUM 9.2 mg/dl (8.4-10.2); CO2 25 mmol/L (22-28); CREATININE 0.6 mg/dl (0.6-1.3); GLUCOSE,RANDOM 99 mg/dl (74-106); SGOT/AST 30 U/L (10-42); SGPT/ALT 23 U/L (10-40); TOT PROT 6.8 g/dl (6.4-8.3)
--- NOTE | 2016-08-07 09:12 | PN ---
Physical Exam: SUBJECTIVE: Patient seen and examined, patient reports ongoing moist cough with intermittent shortness of breath patient denies any chest pain OBJECTIVE: patient is a 86-year-old female with a past medical history PMHx of hypertension, hyperlipidemia, and hypothyroidism,patient was admitted from the emergency department to observation for epigastric pain and cough. Vital Signs Period Temp Pulse Resp BP Sys/Haley Pulse Ox Last 24 Hr 97.4 F-99.2 F 62-98 18-20 129-133/65-69 90-99 GENERAL: The patient is awake, alert, and fully oriented, in no acute distress. HEAD: Normal with no signs of trauma. EYES: PERRL, extraocular movements intact, sclera anicteric, conjunctiva clear. No ptosis. ENT: Ears normal, nares patent, oropharynx clear without exudates, moist mucous membranes. NECK: Trachea midline, full range of motion, supple. LUNGS: Breath sounds equal, crackles to bilateral bases r>l , persistent moist cough, no wheezes, no accessory muscle use. HEART: Regular rate and rhythm, S1, S2 without murmur, rub or gallop. ABDOMEN: Soft, nontender, nondistended, normoactive bowel sounds, no guarding, no rebound, no hepatosplenomegaly, no masses. EXTREMITIES: 2+ pulses, warm, well-perfused, no edema. NEUROLOGICAL: Cranial nerves II through XII grossly intact. Normal speech, gait not observed. PSYCH: Normal mood, normal affect. SKIN: Warm, dry, normal turgor, no rashes or lesions noted Active Medications Generic Name Dose Route Start Last Admin Trade Name Freq PRN Reason Stop Dose Admin Acetaminophen 650 mg 08/05/16 02:16 08/06/16 21:23 Tylenol - PO 650 mg Q6H PRN Administration FEVER OR PAIN Al Hydroxide/Mg Hydroxide 30 ml 08/05/16 09:53 Mylanta Oral Suspension - PO Q6H PRN DYSPEPSIA Albuterol/Ipratropium 1 amp 08/07/16 09:15 Duoneb - NEB Q6H RAMYA Aspirin 81 mg 08/05/16 10:00 08/06/16 10:04 Asa - PO 81 mg DAILY [facility] Administration Atorvastatin Calcium 10 mg 08/07/16 22:00 Lipitor - PO MoFr@2200 [facility] Ezetimibe 10 mg 08/05/16 10:00 08/06/16 10:10 Zetia - PO 10 mg DAILY [facility] Administration Famotidine 20 mg 08/05/16 10:00 08/06/16 21:23 Pepcid - PO 20 mg BID [facility] Administration Folic Acid 1 mg 08/05/16 10:00 08/06/16 10:09 Folic Acid - PO 1 mg DAILY [facility] Administration Guaifenesin 10 ml 08/07/16 00:16 08/07/16 03:39 Robitussin Dm - PO 10 ml Q6H PRN Administration COUGH Heparin Sodium (Porcine) 5,000 unit 08/05/16 10:00 08/06/16 21:24 Heparin - SQ 5,000 unit BID [facility] Administration Levofloxacin 150 mls @ 150 mls/hr 08/07/16 10:00 Levaquin 750 Mg Premixed Ivpb - IVPB DAILY [facility] Levothyroxine Sodium 25 mcg 08/05/16 07:00 08/07/16 06:04 Synthroid - PO 25 mcg DAILY@0700 [facility] Administration Multivitamins/Minerals/Vitamin C 1 tab 08/05/16 10:00 08/06/16 10:00 Tab-A-Vit - PO 1 tab DAILY [facility] Administration Valsartan 320 mg 08/05/16 10:00 08/06/16 10:08 Diovan - PO 320 mg DAILY [facility] Administration CBC WBC 3.9 K/mm3 (4.0-10.8) L 08/07/16 07:20 RBC 3.64 M/mm3 (3.60-5.2) 08/07/16 07:20 Hgb 12.4 GM/dl (10.7-15.3) 08/07/16 07:20 Hct 36.4 % (32.4-45.2) 08/07/16 07:20 MCV 99.9 fl (80-96) H 08/07/16 07:20 MCHC 34.0 g/dl (32.0-36.0) 08/07/16 07:20 RDW 12.0 % (11.6-15.6) 08/07/16 07:20 Plt Count 249 K/MM3 (134-434) 08/07/16 07:20 MPV 7.4 fl (7.5-11.1) L 08/07/16 07:20 Neutrophils % 56.4 % (42.8-82.8) 08/05/16 06:00 Lymphocytes % 27.6 % (8-40) 08/05/16 06:00 Monocytes % 11.2 % (3.8-10.2) H D 08/05/16 06:00 Eosinophils % 4.4 % (0-4.5) 08/05/16 06:00 Basophils % 0.4 % (0-2.0) 08/05/16 06:00 Platelet Estimate Adequate (NORMAL) 08/04/16 21:04 Platelet Comment Few large plts 08/04/16 21:04 CMP Sodium 130 mmol/L (136-145) L 08/07/16 07:20 Potassium 4.5 mmol/L (3.5-5.1) 08/07/16 07:20 Chloride 94 mmol/L (98-107) L 08/07/16 07:20 Carbon Dioxide 25 mmol/L (22-28) 08/07/16 07:20 Anion Gap 11 (8-16) 08/07/16 07:20 BUN 14 mg/dl (7-18) D 08/07/16 07:20 Creatinine 0.6 mg/dl (0.6-1.3) 08/07/16 07:20 Creat Clearance w eGFR > 60 (>60) 08/07/16 07:20 Random Glucose 99 mg/dl (74-106) 08/07/16 07:20 Hemoglobin A1c % 5.6 % (4.8-6.0) D 08/05/16 06:00 Calcium 9.2 mg/dl (8.4-10.2) 08/07/16 07:20 Phosphorus 3.2 mg/dl (2.5-4.6) 08/05/16 06:00 Magnesium 1.9 mg/dL (1.8-2.4) 08/05/16 06:00 Total Bilirubin 0.5 mg/dl (0.2-1.0) D 08/07/16 07:20 AST 30 U/L (10-42) D 08/07/16 07:20 ALT 23 U/L (10-40) D 08/07/16 07:20 Alkaline Phosphatase 51 U/L (32-92) 08/07/16 07:20 Creatine Kinase 56 IU/L (26-140) 08/05/16 07:57 Troponin I < 0.03 ng/ml (0.03-0.50) L 08/05/16 07:57 Total Protein 6.8 g/dl (6.4-8.3) 08/07/16 07:20 Albumin 4.1 g/dl (3.5-5.0) 08/07/16 07:20 Triglycerides 117 mg/dl (35-160) D 08/05/16 06:00 Cholesterol 153 mg/dl 08/05/16 06:00 Total LDL Cholesterol 73 mg/dl 08/05/16 06:00 HDL Cholesterol 57 mg/dl (29-89) D 08/05/16 06:00 Lipase 27 U/L (22-51) 08/04/16 21:04 TSH 3.85 uIU/ml (0.358-3.74) H D 08/05/16 06:00 imaging x-ray (08/04/2016), bilateral interstitial lung disease noted no infiltrates and effusions noted ASSESSMENT/PLAN: 1) pulm interstitial lung disease - Distant cough noted on exam, crackles noted, will start DuoNeb standing, repeat chest x-ray ordered, patient reports 2 days of Zithromax as outpatient prior to arrival to the emergency department reports no relief in symptoms, will start Levaquin - keep SpO2 above 92% with supplemental oxygen 2) Cardiology chest pain r/o acs - Pain likely secondary to GERD, has resolved AFTER Mylanta and Pepcid, - troponin x 3 wnl - cardiology consulted and followed hypertension - Continue Diovan Hyperlipidemia - Continue Zetia and Lipitor, lfts wnl 3) Hypothyroidism - Continue Synthroid, tsh is slightly elevated, pending t4 4) gi gerd - d/c pepcid start zantac F/E/N: - Sodium controlled diet - replete lytes prn Prophylaxis: - SCDs bilaterally - Heparin 5,000u sq bid - zantac Dispo: requires observation telemetry CODE STATUS: FULL CODE Visit type - Emergency Visit Emergency Visit: Yes ED Registration Date: 08/04/16 Care time: The patient presented to the Emergency Department on the above date and was hospitalized for further evaluation of their emergent condition. - New Patient This patient is new to me today: Yes Date on this admission: 06/26/17 - Critical Care Critical Care patient: No - Discharge Referral Referred to [facility] Med P.C.: No
[2016-08-07 09:17] LABS: WHITE BLOOD COUNT 3.9 K/mm3 (4.0-10.8)
[2016-08-07 09:18] LABS: MEAN CELL VOLUME 99.9 fl (80-96); MEAN PLT VOLUME 7.4 fl (7.5-11.1); PLATELET COUNT 249 K/MM3 (134-434)
[2016-08-07] MEDS ORDERED: MAGNESIUM SULF 50% (8.12 MEQ/2 ML-1 GM VIAL) IVPB ONE (09:27)
[2016-08-07] MEDS: VALSARTAN 160 MG TABLET (UD) PO SCH (10:43)
[2016-08-07] MEDS: ASPIRIN 81 MG CHEWABLE TABLETS PO SCH (10:43)
[2016-08-07] MEDS: FOLIC ACID 1 MG TABLET (FP) PO SCH (10:43)
[2016-08-07] MEDS: guaiFENesin 600 MG TABLET.ER (FP) PO SCH ×2 (10:43→21:32)
[2016-08-07] MEDS: MULTIVITAMINS (DAILY MVI) TABLET (FP) PO SCH (10:43)
[2016-08-07] MEDS: LEVOFLOXACIN 750 MG IVPB 150 ML IVPB SCH (10:46)
[2016-08-07] MEDS: EZETIMIBE 10 MG TABLET (FP) PO SCH (10:47)
[2016-08-07] MEDS: HEPARIN NA (PORCINE) 5,000 UNITS/ML 1ML VIAL SQ SCH ×2 (10:47→21:32)
[2016-08-07] MEDS: RANITIDINE HCL 150 MG TABLET (FP) PO SCH ×2 (10:49→21:32)
[2016-08-07] MEDS: ALBUTEROL SO4 2.5/IPRATROPIUM 0.5 INH SOL 3 ML VIAL.NEB. NEB SCH ×2 (11:44→18:00)
[2016-08-07 17:05] LABS: THYROXINE (T4) 7.9 ug/dl (4.8-13.9)
[2016-08-07] MEDS ORDERED: SODIUM CHLORIDE NASAL SPRAY 44 ML BOTTLE NS PRN (17:55)
[2016-08-07] MEDS ORDERED: ATORVASTATIN CA 10 MG TABLET (FP) PO SCH (22:00)
[2016-08-08 06:09] VITALS: BP 114/50; PULSE 66; TEMP 98.3
[2016-08-08] MEDS: LEVOTHYROXINE NA 25 MCG TABLET (FP) PO SCH (06:25)
[2016-08-08] MEDS: HEPARIN NA (PORCINE) 5,000 UNITS/ML 1ML VIAL SQ SCH (09:43)
[2016-08-08] MEDS: LEVOFLOXACIN 750 MG IVPB 150 ML IVPB SCH (09:43)
[2016-08-08] MEDS: EZETIMIBE 10 MG TABLET (FP) PO SCH (09:43)
[2016-08-08] MEDS: MULTIVITAMINS (DAILY MVI) TABLET (FP) PO SCH (09:44)
[2016-08-08] MEDS: guaiFENesin 600 MG TABLET.ER (FP) PO SCH (09:44)
[2016-08-08] MEDS: ASPIRIN 81 MG CHEWABLE TABLETS PO SCH (09:44)
[2016-08-08] MEDS: FOLIC ACID 1 MG TABLET (FP) PO SCH (09:44)
[2016-08-08] MEDS: RANITIDINE HCL 150 MG TABLET (FP) PO SCH (09:44)
[2016-08-08] MEDS: VALSARTAN 160 MG TABLET (UD) PO SCH (09:44)
[2016-08-08] MEDS ORDERED: BUDESONIDE/FORMETEROL FUMARATE 80/4.5 mcg INHALER IH SCH (10:15)
--- NOTE | 2016-08-08 10:19 | DS ---
Physical Exam: SUBJECTIVE: Patient seen and examined OBJECTIVE: Vital Signs Period Temp Pulse Resp BP Sys/Haley Pulse Ox Last 24 Hr 97.5 F-98.3 F 66-98 17-18 108-114/45-60 96-97 PHYSICAL EXAM GENERAL: The patient is awake, alert, and fully oriented, in no acute distress. HEAD: Normal with no signs of trauma. EYES: PERRL, extraocular movements intact, sclera anicteric, conjunctiva clear. ENT: Ears normal, nares patent, oropharynx clear without exudates, moist mucous membranes. NECK: Trachea midline, full range of motion, supple. LUNGS: Breath sounds equal, clear to auscultation bilaterally, no wheezes, no crackles, no accessory muscle use. HEART: Regular rate and rhythm, S1, S2 without murmur, rub or gallop. ABDOMEN: Soft, nontender, nondistended, normoactive bowel sounds, no guarding, no rebound, no hepatosplenomegaly, no masses. EXTREMITIES: 2+ pulses, warm, well-perfused, no edema. NEUROLOGICAL: Cranial nerves II through XII grossly intact. Normal speech, gait not observed. PSYCH: Normal mood, normal affect. SKIN: Warm, dry, normal turgor, no rashes or lesions noted. LABS Laboratory Results - last 24 hr 08/07/16 07:20 Magnesium 2.0 HOSPITAL COURSE: Date of Admission:08/04/16 Date of Discharge: 08/08/16 Minutes to complete discharge: 45 Discharge Summary Reason For Visit: EPIGASTRIC PAIN- R/O KS Current Active Problems Chest pain in adult (Acute) DVT prophylaxis (Acute) Epigastric pain (Acute) HLD (hyperlipidemia) (Acute) HTN (hypertension) (Acute) Hypothyroidism (Acute) Condition: Stable - Instructions Referrals: Robin Polanco MD [Primary Care Provider] - - Home Medications Comprehensive Discharge Medication List: Ambulatory Orders Aspirin [Aspir 81] 81 mg PO AM 05/31/12 Acetaminophen [Tylenol] 650 mg PO PRN PRN 08/04/16 Diazepam [Valium] 5 mg PO PRN PRN 08/04/16 Olmesartan Medoxomil [Benicar (Nf)] 40 mg PO DAILY 08/04/16 - Discharge Referral Referred to [facility] Med P.C.: No
[2016-08-08] MEDS: ALBUTEROL SO4 2.5/IPRATROPIUM 0.5 INH SOL 3 ML VIAL.NEB. NEB SCH (11:41)
[2016-08-08] MEDS ORDERED: PT OWN MED DRAWER 7, Y5N ONE (12:27)
[2016-08-08] MEDS: ACETAMINOPHEN 325 MG TABLET (FP) PO PRN (13:28)
== END 2016-08-08 14:57 | disposition home health service (06) ==
LOC: FER 20:32 → FM/S 23:02
PROVIDERS: ADMIT Internal Medicine; ATTEND Nurse Practitioner Family
PROC: 3E0F7GC Introduction of Other Therapeutic Substance into Respiratory Tract, Via Natural or Artificial Opening (ICD-10-PCS; principal; 2016-08-04)
PROC: 3E0F7GC Introduction of Other Therapeutic Substance into Respiratory Tract, Via Natural or Artificial Opening (ICD-10-PCS; 2016-08-04)
DX: R10.13 Epigastric pain (principal); I10 Essential (primary) hypertension; E78.5 Hyperlipidemia, unspecified; E03.9 Hypothyroidism, unspecified; Z87.891 Personal history of nicotine dependence; Z79.82 Long term (current) use of aspirin; K52.9 Noninfective gastroenteritis and colitis, unspecified; R07.9 Chest pain, unspecified
CPT/HCPCS: 36415; 71010-TC; 71020-TC; 80048; 80053; 80061; 81003; 82550; 83036; 83690; 83735; 84100; 84436; 84443; 84484; 85025; 85027; 93005; 93306-TC; 94640; 97116-GP; 97161-GP; 99285-25; G0378; J1644

== ENCOUNTER 2017-04-09 22:35 | Emergency (ER) | payer OTHER ==
[2017-04-09 22:51] VITALS: BP 148/86; PULSE 92; TEMP 98.3; BMI 29.8
--- NOTE | 2017-04-09 22:55 | PDOC ---
History of Present Illness - General Chief Complaint: Pain, Acute Stated Complaint: EATING FRIED SHRIMP, CUT OR FB Time Seen by Provider: 04/09/17 22:48 - History of Present Illness Initial Comments: This 87-year-old woman with history of HTN/HLD/GERD/hypothyroidism presents with history of pain in anterior neck with swallowing after eating: Patient states that she was eating fried shrimp (tails of shrimp in place) just prior to presentation. Although she does not recall swallowing the tail of the shrimp , she felt pain in her throat after swallowing a shrimp. Since then, she has had pain with swallowing at the base of her neck. She denies shortness of breath, nausea/vomiting. She has not had any sensation of choking since the incident. She has been able to swallow solid food (bread) and water without difficulty. There has been no regurgitation. No previous history of impacted food bolus. The patient had taken 650 mg of Tylenol prior to admission for throat pain. Approximately 3 hours prior to presentation she had taken 25 mg of Benadryl for a runny nose. Past History - Past Medical History Allergies/Adverse Reactions: Allergies Allergy/AdvReac Type Severity Reaction Status Date / Time No Known Allergies Allergy Verified 04/09/17 22:41 Home Medications: Ambulatory Orders Aspirin 81 mg PO DAILY 04/09/17 Atorvastatin Ca [Lipitor] 10 mg PO HS 04/09/17 Ezetimibe [Zetia] 10 mg PO DAILY 04/09/17 Folic Acid 1 mg PO DAILY 04/09/17 Levothyroxine [Synthroid -] 25 mcg PO DAILY 04/09/17 Olmesartan Medoxomil [Benicar] 40 mg PO DAILY 04/09/17 Ranitidine HCl 150 mg PO DAILY 04/09/17 HTN: Yes Hypercholesterolemia: Yes Thyroid Disease: Yes (HYPOTHYROID) - Surgical History Appendectomy: Yes - Family Disease History Family Disease History: Heart Disease: Father - Suicide/Smoking/Psychosocial Hx Smoking Status: No Smoking History: Former smoker Have you smoked in the past 12 months: No Number of Cigarettes Smoked Daily: 30 If you are a former smoker, when did you quit?: 25 Hx Alcohol Use: Yes Drug/Substance Use Hx: No Substance Use Type: None Hx Substance Use Treatment: No Review of Systems - Review of Systems Able to Perform ROS?: Yes Comments:: 12 point review of systems is negative except for what is noted in the history of present illness *Physical Exam - Physical Exam Comments: GENERAL: Elderly female, alert and oriented 3, anxious but in no respiratory distress HEAD: Normal with no signs of trauma. EYES: PERRLA, EOMI, sclera anicteric, conjunctiva clear. ENT: Ears normal, nares patent. Dry mucous membranes. No foreign body, edema or significant erythema seen in oropharynx NECK: Normal range of motion, supple without lymphadenopathy, JVD, or masses. Mild tenderness on palpation at the suprasternal notch; no masses palpated. No stridor heard LUNGS: Breath sounds equal, clear to auscultation bilaterally. Excellent air exchange bilaterally No wheezes, and no crackles. HEART:Regular rate and rhythm, normal S1 and S2 without murmur, rub or gallop. ABDOMEN:.normal bowel sounds No guarding,tenderness or rebound.No masses No distention. EXTREMITIES: Normal range of motion, no edema. No clubbing or cyanosis. No erythema, or tenderness. NEUROLOGICAL: Cranial nerves II through XII grossly intact. Normal speech. No focal neurological deficits. MUSCULOSKELETAL: Back non-tender to palpation, no CVA tenderness SKIN: Warm, Dry, normal turgor, no rashes or lesions noted. Medical Decision Making - Medical Decision Making 04/09/17 23:06 this 87-year-old woman presents with pain at the anterior portion of the base of her neck, especially with swallowing, since eating dinner this evening. Patient thinks that she may have swallowed either shrimp tail or shrimp shell inadvertently. She has been able to eat solids and drink water without regurgitation. No previous history of retained swallowed food. Exam as noted Because patient has significant pain/mild tenderness at the suprasternal notch, noncontrast CT of the soft tissue the neck will be performed to evaluate for edema/retained foreign body 04/10/17 00:20 Preliminary reading of soft tissue of the neck CT by Imaging personal caregiver: 2 mm calcified density associated with left pharyngeal surface in the vallecula ( possibly reflecting a retained ingested foreign body). No edema or other abnormality seen. Case and CT results discussed with Dr. Cristóbal Cabrales, ENT staff. CT reviewed with him. The radiodense, spherical 2 mm density is quite lateral to the airway and appears to be more proximal than the vallecula (in the sagittal view , appearing to be at the level of the teeth). Since patient's airway is not compromised clinically and she is having no symptoms consistent with obstruction of the esophagus, the patient can be followed up as an outpatient. The patient should call ENT office in the morning to arrange follow-up later in the day. Maalox or Magic mouthwash is used commonly for pain relief. Mixture of 10 mL Maalox/10 mL of Benadryl elixir (25 mg)/10 mL of 2% viscous lidocaine given. Patient swallowed mixture without difficulty. Patient continued to be stable without evidence of respiratory compromise and she was discharged with plan to follow-up with ENT office in the morning. Meanwhile, she can take additional Tylenol when she arrives home. She should return to the ER if she has severe pain or any difficulty breathing/swallowing. *DC/Admit/Observation/Transfer Diagnosis at time of Disposition: Foreign body sensation in throat - Discharge Dispostion Disposition: HOME Condition at time of disposition: Stable - Referrals Referrals: Robin Polanco MD [Primary Care Provider] - Cristóbal Cabrales MD [Staff Physician] - Call tomorrow - Patient Instructions Printed Discharge Instructions: DI for Foreign Body, Swallowed-Adult Additional Instructions: Soft diet Tylenol as needed for pain you can take your other medications as prescribed Call ENT office (Dr. Cabrales group) at 8:30 a.m. tomorrow to arrange follow-up appointment later in the day Return if you have difficulty breathing or swallowing - Post Discharge Activity
[2017-04-10] MEDS ORDERED: diphenhydrAMINE HCL 12.5 MG/5 ML BULK BOTTLE ONE (00:49)
[2017-04-10] MEDS ORDERED: MAG HYDROX/AL HYDROX/SIMETH 30 ML UNIT-DOSE CUP ONE (00:50)
[2017-04-10] MEDS ORDERED: LIDOCAINE VISCOUS 2% ORAL/TOP 20 ML UNIT-DOSE CUP ONE (00:50)
[2017-04-10] MEDS ORDERED: MAG HYDROX/AL HYDROX/SIMETH 30 ML UNIT-DOSE CUP PO ONE (01:04)
[2017-04-10] MEDS ORDERED: diphenhydrAMINE HCL 12.5 MG/5 ML UNIT-DOSE CUPS PO ONE (01:04)
[2017-04-10] MEDS ORDERED: LIDOCAINE VISCOUS 2% ORAL/TOP 20 ML UNIT-DOSE CUP PO ONE (01:05)
== END 2017-04-10 01:11 | disposition home or self-care (01) ==
LOC: FER 22:35
DX: R09.89 Other specified symptoms and signs involving the circulatory and respiratory systems (principal); I10 Essential (primary) hypertension; E78.5 Hyperlipidemia, unspecified; K21.9 Gastro-esophageal reflux disease without esophagitis; E03.9 Hypothyroidism, unspecified; Z87.891 Personal history of nicotine dependence
CPT/HCPCS: 70490-TC; 99281-25

== ENCOUNTER 2021-08-22 18:57 | Emergency (ER) | payer OTHER, BC ==
[2021-08-22 19:19] VITALS: BP 132/60; PULSE 67; TEMP 98; BMI 27.8
[2021-08-22] MEDS ORDERED: SODIUM CHLORIDE 1,000 ML IV ONE (19:19)
[2021-08-22 20:05] LABS: ALBUMIN 4.1 g/dl (3.4-5.0); BILIRUBIN,TOTAL 0.7 mg/dl (0.2-1); CALCIUM 10.2 mg/dl (8.5-10); CREATININE 0.9 mg/dl (0.55-1.3)
[2021-08-22 20:06] LABS: HEMATOCRIT 39.5 % (32.4-45.2); HEMOGLOBIN 13.8 G/dL (10.7-15.3); MCH 36.2 pg (25.7-33.7); MEAN CELL VOLUME 103.4 fl (80-96); PLATELET COUNT 247.9 10^3/uL (134-434); RBC 3.82 10^6/uL (3.60-5.2); WHITE BLOOD COUNT 6.4 10^3/uL (4.0-10.8)
[2021-08-22 21:13] LABS: EPITHELIAL CELLS FEW /hpf
== END 2021-08-22 21:59 | disposition home or self-care (01) ==
LOC: FER 18:57
DX: R42 Dizziness and giddiness (principal); F41.9 Anxiety disorder, unspecified
CPT/HCPCS: 0241U-QW; 36415; 70450-TC; 80053; 80307; 81003; 81015; 82550; 84484; 85025; 93005; 99285-25